=== PATIENT | male | born 1995 | race Caucasian/White ===

== ENCOUNTER 2023-04-18 15:23 | Emergency (ER) | payer BC ==
[~2023-04-18] VITALS: Ht 182.9 cm; Wt 79.4 kg
[2023-04-18 15:47] VITALS: BP 127/70; TEMP 97.6; O2SAT 100
[2023-04-18] MEDS ORDERED: FLUORESCEIN SODIUM OPHTH 1 EA STRIP OP ONE (16:30)
[2023-04-18] MEDS ORDERED: TETRACAINE HCL 0.5% OPHTALMIC 15 ML BOTTLE OP ONE (16:30)
[2023-04-18] MEDS ORDERED: FLUORESCEIN SODIUM OPHTH 1 EA STRIP ONE (16:32)
[2023-04-18] MEDS ORDERED: ERYT3.5O9 RIGHTEYE (17:30)
== END 2023-04-18 17:31 | disposition home or self-care (01) ==
LOC: ER 15:23
DX: S05.01XA Injury of conjunctiva and corneal abrasion without foreign body, right eye, initial encounter (principal); F17.200 Nicotine dependence, unspecified, uncomplicated; Z79.899 Other long term (current) drug therapy; Z60.2 Problems related to living alone; Z88.1 Allergy status to other antibiotic agents; X58.XXXA Exposure to other specified factors, initial encounter; Y93.89 Activity, other specified; Y92.89 Other specified places as the place of occurrence of the external cause; Y99.8 Other external cause status